=== PATIENT | female | born 1995 | race Caucasian/White ===

== ENCOUNTER 2020-04-12 16:11 | Emergency (ER) | payer OTHER, SELFPAY ==
[2020-04-12 16:14] VITALS: BP 116/68; PULSE 92; RESP 17; TEMP 36.6; O2SAT 100
[2020-04-12] MEDS: ACETAMINOPHEN 500 MG TABLET 1000 MG PO (17:05)
--- NOTE | 2020-04-12 17:07 | ED.BACK ---
HPI - Back Pain/Injury General Chief Complaint: Back Pain/Injury Stated Complaint: neck and back strain Time Seen by Provider: 04/12/20 16:45 Source: patient Mode of arrival: ambulatory Limitations: no limitations History of Present Illness HPI Narrative: This is a 24 year old female that presents to the ER for right sided neck pain since this morning. Reports while at work she started to have some neck pain and stiffness. She took ibuprofen with some relief. Pain is worse with movement and relieved with rest. No known injury or trauma. Denies fever, headache, vision changes, vomiting, numbness, or weakness. Related Data Allergies Allergy/AdvReac Type Severity Reaction Status Date / Time amoxicillin Allergy Rash Verified 04/12/20 16:17 Review of Systems Review of Systems: Narrative: CONSTITUTIONAL: Denies fever EYES: Denies visual changes SKIN: Denies rash MUSCULOSKELETAL: Reports joint pain, and myalgia. NEUROLOGIC: Denies headache, numbness, or weakness. All systems reviewed & are unremarkable except as noted in HPI and below PMFSH Past Medical History Medical History (Updated 04/12/20 @ 18:17 by Brenda Hunter PA-C) No active medical problems Social History Social History (Updated 04/12/20 @ 17:09 by Brenda Hunter PA-C) Substance use: never Gender identity (if verbalized by the patient): Female Exam Narrative: Exam Narrative: GENERAL: Well-appearing, well-nourished, and in no acute distress. HEAD: Normocephalic, atraumatic. EYES: PERRLA and EOMI. ENT: Mucous membranes moist. Oropharynx without tonsillar hypertrophy exudate or other lesions. Bilateral TMs pearly mtz non-bulging NECK: Supple. No adenopathy or masses. No midline cervical spine tenderness. Tender to palpation of the right trapezius musculature CHEST: Clear to auscultation. No respiratory distress. No wheezes rales or rhonchi HEART: Regular rate and rhythm. No murmur heard. Normal peripheral pulses. EXTREMITIES: Normal range of motion. No edema. SKIN: Warm, dry, no rash. NEURO: No focal deficits. Alert and oriented x3. PSYCH: Normal mood and affect Course Vital Signs Vital signs: Vital Signs Temperature 97.9 F 04/12/20 16:14 Pulse Rate 92 04/12/20 16:14 Respiratory Rate 17 04/12/20 16:14 Blood Pressure 116/68 04/12/20 16:14 Pulse Oximetry 100 04/12/20 16:14 Temperature 97.9 F 04/12/20 16:14 Pulse Rate 92 04/12/20 16:14 Respiratory Rate 17 04/12/20 16:14 Blood Pressure 116/68 04/12/20 16:14 Pulse Oximetry 100 04/12/20 16:14 MDM - Back Pain/Injury MDM Narrative Medical decision making narrative: Patient presents the emergency department for right sided neck pain since this morning. No known injury or trauma. She is afebrile and nontoxic-appearing. She is neurologically intact. Patient is tender palpation of the right trapezius musculature. Reports improvement with Valium and Tylenol. Was instructed on care of muscle spasm. She is to follow-up with primary care doctor. She was given warnings to return to the ER Critical Care Time Critical Care Time Critical Care Time: No Discharge Plan Discharge Clinical Impression: Neck pain on right side Patient Disposition: Home, Self-Care Condition: Stable Instructions: Acute Neck Pain (ED) Additional Instructions: Return to the emergency department if you experience fever, vision changes, vomiting, sudden onset numbness or weakness, or any other symptoms that are concerning to you Rest, use ice/heat, take anti-inflammatories (Aleve, Ibuprofen, Naproxen, etc) or Tylenol as needed for pain as well as muscle relaxer (diazepam) as needed for pain. Muscle relaxers can make you drowsy, do not drive if you take this Follow up with primary care doctor Prescriptions: New diazepam [Valium] 5 mg tablet 5 mg PO BID PRN (Reason: muscle spasm) Qty: 10 RF: 0 Follow-up/Referrals: Lefty Maravilla MD [Physician] - 3 Days PHYSICIAN,ARIANNA Mendoza
== END 2020-04-12 18:32 | disposition home or self-care (01) ==
PROVIDERS: Emergency Provider Emergency Medicine
DX: M54.2 Cervicalgia (principal)
CPT/HCPCS: 96372; 99283; A9270; J3360